=== PATIENT | female | born 1960 | race Two or more races ===

== ENCOUNTER 2020-06-03 13:29 | Inpatient (IN) | payer OTHER ==
[~2020-06-03] VITALS: Ht 167.6 cm; Wt 70.8 kg
[2020-06-05] MEDS ORDERED: MACROBID 100 M100 MG PO (14:51)
[2020-06-10] MEDS ORDERED: MACRODANTIN100 MG (08:11)
== END 2020-06-12 16:53 | disposition home or self-care (01) | DRG 331 ==
LOC: SURH 06-09 04:00 → SURG 06-09 06:00 → O/R 06-09 06:00 → SURH 06-09 09:15 → SURG 06-09 14:34
PROVIDERS: ADMIT Colon & Rectal Surgery; ATTEND Colon & Rectal Surgery
PROC: 0DBN4ZZ Excision of Sigmoid Colon, Percutaneous Endoscopic Approach (ICD-10-PCS; 2020-06-09)
PROC: 0DTP4ZZ Resection of Rectum, Percutaneous Endoscopic Approach (ICD-10-PCS; principal; 2020-06-09 04:00)
DX: K57.20 Diverticulitis of large intestine with perforation and abscess without bleeding (principal)